=== PATIENT | female | born 1980 | race American Indian/Alaskan Native ===

== ENCOUNTER 2019-06-14 18:59 | Outpatient (CLI) | payer MEDICAID | END 2019-06-14 19:00 | disposition critical access hospital (66) | LOC: EMS 18:59 | PROVIDERS: ATTEND Surgery | DX: R25.2 Cramp and spasm (principal); R07.89 Other chest pain; F41.9 Anxiety disorder, unspecified | CPT/HCPCS: A0425; A0429 ==

== ENCOUNTER 2019-06-14 19:26 | Emergency (ER) | payer MEDICAID ==
[2019-06-14 19:59] LABS: BASOPHILS # (AUTO) 0.1 10^3/uL (0.0-0.1); EOSINOPHILS % (AUTO) 0.4 %; LYMPHOCYTES # (AUTO) 1.8 10^3/uL (1.5-3.5); MEAN CORPUSCULAR HGB CONC 31.4 g/dL (32.0-36.0); MEAN CORPUSCULAR VOLUME 89.1 fL (81.0-99.0); MEAN PLATELET VOLUME 8.3 fL (7.9-10.8); MONOCYTES # (AUTO) 0.9 10^3/uL (0.0-1.0); MONOCYTES % (AUTO) 8.9 %; NEUTROPHILS # (AUTO) 7.4 10^3/uL (1.5-6.6); NEUTROPHILS % (AUTO) 72.4 %; PLT - PLATELET COUNT 387 10^3/uL (130-450); RED BLOOD COUNT 3.93 10^6/uL (4.20-5.40); RED CELL DISTRIBUTION WIDTH 16.5 % (12.0-15.0); WHITE BLOOD COUNT 10.3 x10^3/uL (4.8-10.8)
[2019-06-14 20:12] LABS: ALBUMIN 3.8 g/dL (3.2-5.5); ALBUMIN/GLOBULIN RATIO 1.1 (1.0-2.2); BILIRUBIN,TOTAL 0.8 mg/dL (0.2-1.0); CALCIUM 8.5 mg/dL (8.5-10.3); CREATININE 0.8 mg/dL (0.4-1.0); TOTAL PROTEIN 7.3 g/dL (6.7-8.2)
--- NOTE | 2019-06-14 20:33 | ED Physician Documentation ---
History of Present Illness - Stated complaint Stated Complaint: CHEST WALL TENDERNESS, ANXIETY - Chief complaint Chief Complaint: General - History obtained from History obtained from: Patient - History of Present Illness Timing: Today (She was driving home from work, she started to hyperventilate in the top of her scalp felt tingly. Subsequently her face felt tingly and she developed carpal spasms. She had a similar episode last year and was diagnosed with panic attack. She has hydroxyzine for same but has not ever taken any. She feels back to normal now other than tiredness.) Review of Systems Constitutional: denies: Fever, Chills Nose: denies: Rhinorrhea / runny nose, Congestion GI: denies: Abdominal Pain, Nausea PD PAST MEDICAL HISTORY - Past Medical History Cardiovascular: None Respiratory: None Neuro: Headaches Endocrine/Autoimmune: None GI: None ORTHO NURSE: None : None HEENT: None Psych: None Musculoskeletal: None Derm: None - Present Medications Home Medications: Ambulatory Orders Medication Instructions Recorded Confirmed Ferrous Sulfate 325 mg PO DAILY #90 tablet 06/14/19 - Allergies Allergies/Adverse Reactions: Allergies Allergy/AdvReac Type Severity Reaction Status Date / Time No Known Drug Allergies Allergy Verified 06/14/19 19:42 - Social History Does the pt smoke?: Yes Smoking Status: Current some day smoker Does the pt drink ETOH?: Yes ETOH Use: Liquor Does the pt have substance abuse?: No - POLST Patient has POLST: No PD ED PE NORMAL - Vitals Vital signs reviewed: Yes - General General: Alert and oriented X 3, No acute distress - HEENT HEENT: PERRL, EOMI - Neck Neck: Supple, no meningeal sign, No bony TTP - Cardiac Cardiac: RRR, No murmur - Respiratory Respiratory: No respiratory distress, Clear bilaterally - Abdomen Abdomen: Non tender - Back Back: No CVA TTP, No spinal TTP - Derm Derm: Normal color, Warm and dry - Extremities Extremities: No edema, No calf tenderness / cord - Neuro Neuro: Alert and oriented X 3, Normal speech Results - Vitals Vitals: Vital Signs - 24 hr 06/14/19 06/14/19 19:42 20:02 Temperature 36.5 C Heart Rate 77 76 Respiratory 16 16 Rate Blood Pressure 124/78 131/87 H O2 Saturation 100 100 Oxygen O2 Source Room air - EKG (time done) 1932 Rate: Rate (enter#) (80) Rhythm: NSR [place]: Normal Intervals: Normal [place] QRS: Normal Ischemia: Normal ST segments Computer interpretation: Agree with computer - Labs Labs: Laboratory Tests 06/14/19 06/14/19 06/14/19 19:57 19:57 19:57 WBC 10.3 RBC 3.93 L Hgb 11.0 L Hct 35.0 L MCV 89.1 MCH 28.0 MCHC 31.4 L RDW 16.5 H Plt Count 387 MPV 8.3 Neut # (Auto) 7.4 H Lymph # (Auto) 1.8 [place] # (Auto) 0.9 Eos # (Auto) 0.0 Baso # (Auto) 0.1 Absolute Nucleated RBC 0.00 Nucleated RBC % 0.0 Sodium 138 Potassium 3.0 L Chloride 104 Carbon Dioxide 24 Anion Gap 10.0 BUN 11 Creatinine 0.8 Estimated GFR (MDRD) 81 L Glucose 99 Calcium 8.5 Total Bilirubin 0.8 AST 34 ALT 32 Alkaline Phosphatase 48 Troponin I High Sens 3.6 Total Protein 7.3 Albumin 3.8 Globulin 3.5 Albumin/Globulin Ratio 1.1 Lipase 35 PD MEDICAL DECISION MAKING - ED course ED course: This is a 38-year-old woman who presents with resolved episode very consistent with a panic attack. Objective testing here is negative except for anemia of unknown chronicity for which she is advised to follow-up and given an iron supplement, she also has hypokalemia which is likely reactive to the nights episode and requires no specific treatment. Departure - Departure Disposition: 01 Home, Self Care Clinical Impression: Panic attack Anemia Qualifiers: Anemia type: unspecified type Qualified Code(s): D64.9 - Anemia, unspecified Condition: Good Record reviewed to determine appropriate education?: Yes Instructions: ED Panic Attack Prescriptions: Ferrous Sulfate 325 mg PO DAILY #90 tablet Comments: You are somewhat anemic. Follow-up with your doctor for this, next available appointment. Return for new or worsening symptoms. If a similar episode happens again you can try the hydroxyzine you have for it at home. You can also use this for sleep as needed.
[2019-06-14 20:38] VITALS: BP 120/76
== END 2019-06-14 20:40 | disposition home or self-care (01) ==
LOC: ED 19:26
DX: F41.0 Panic disorder [episodic paroxysmal anxiety] (principal); E87.6 Hypokalemia; D64.9 Anemia, unspecified; F17.200 Nicotine dependence, unspecified, uncomplicated
CPT/HCPCS: 36415; 80053; 83690; 84484; 85025; 93005; 99283

== ENCOUNTER 2019-07-25 16:59 | Emergency (ER) | payer MEDICAID ==
[2019-07-25 17:16] VITALS: BP 148/106
--- NOTE | 2019-07-25 17:26 | ED Physician Documentation ---
History of Present Illness - Stated complaint Stated Complaint: ANXIETY/PANIC ATTACK - Chief complaint Chief Complaint: MHE - History obtained from History obtained from: Patient, Friend - History of Present Illness Timing: Today - Additonal information Additional information: This is a 38-year-old woman who presents with her boyfriend complains that she had a panic attack earlier today felt like she was going to faint when she was standing up. She has had this happen in the past and was prescribed hydroxyzine which she took 2 of at 230 this afternoon and it was not getting any better. Her throat was very tingly and she was tingly all over and she felt like her heart was racing. Her face got really hot. She had to call her boyfriend to get off work early to bring her here and she left work early as well. She was so anxious that they had to loin puller the road several times on the way here. She was nauseous and had an episode of vomiting. No diarrhea. She is been treated by the [facility] to get the hydroxyzine but does not have a local primary care provider and denies taking other medications in the past for anxiety. She was seen here in late May and given a cardiac work-up which was normal. She was found to be anemic and started taking iron tablets which she said she is still taking. 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 She denies . No recent illness. 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 : None HEENT: None Psych: None Musculoskeletal: None Derm: None - Present Medications Home Medications: Ambulatory Orders Medication Instructions Recorded Confirmed Ferrous Sulfate 325 mg PO DAILY #90 tablet 06/14/19 - Allergies Allergies/Adverse Reactions: Allergies Allergy/AdvReac Type Severity Reaction Status Date / Time No Known Drug Allergies Allergy Verified 07/25/19 17:16 - Social History Does the pt smoke?: Yes Smoking Status: Current some day smoker Does the pt drink ETOH?: Yes Does the pt have substance abuse?: No - POLST Patient has POLST: No PD ED PE NORMAL - Vitals Vital signs reviewed: Yes - General General: Alert and oriented X 3, No acute distress, Well developed/nourished - HEENT HEENT: Atraumatic, PERRL, EOMI, Moist mucous membranes, Pharynx benign - Neck Neck: Supple, no meningeal sign, No adenopathy, Thyroid normal - Cardiac Cardiac: RRR, No murmur, Strong equal pulses - Respiratory Respiratory: No respiratory distress, Clear bilaterally - Abdomen Abdomen: Normal bowel sounds, Soft - Derm Derm: Normal color, Warm and dry, No rash - Extremities Extremities: No deformity, No edema - Neuro Neuro: Alert and oriented X 3, thread weaver 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 to help her sleep tonight. Recommended outpatient follow-up and cognitive behavioral therapy. They plan to follow-up with the [facility]. She requested a note for work. Departure - Departure Disposition: Home, Self Care Clinical Impression: Anxiety attack Condition: Good Instructions: ED Panic Attack Follow-Up: [facility] [Provider Group] Comments: Follow-up with a primary care provider for further management of your anxiety. Cognitive behavioral therapy is probably the best treatment modality for anxiety and can be arranged through a counseling office.
[2019-07-25] MEDS ORDERED: LORazepam 1 MG TABLET PO STA (17:42)
== END 2019-07-25 17:57 | disposition home or self-care (01) ==
LOC: ED 16:59
DX: F41.0 Panic disorder [episodic paroxysmal anxiety] (principal); F17.200 Nicotine dependence, unspecified, uncomplicated
CPT/HCPCS: 99282; 99284; J8499

== ENCOUNTER 2019-09-13 18:03 | Outpatient (CLI) | payer MEDICAID | END 2019-09-13 18:04 | disposition critical access hospital (66) | LOC: EMS 18:03 | PROVIDERS: ATTEND Surgery | DX: R11.2 Nausea with vomiting, unspecified (principal); R51 Headache; R42 Dizziness and giddiness; R00.0 Tachycardia, unspecified | CPT/HCPCS: A0425; A0427; A0999 ==

== ENCOUNTER 2019-09-13 18:29 | Emergency (ER) | payer MEDICAID ==
[2019-09-13] MEDS ORDERED: SODIUM CHLORIDE 0.9% 1,000 ML IV ONE ×4 (18:40→20:18)
[2019-09-13] MEDS ORDERED: PROMETHAZINE INJ 25 MG in SODIUM CHLORIDE 0.9% 50 ML IV STA (18:41)
[2019-09-13] MEDS ORDERED: LORazepam 2 MG/ML VIAL IVP STA ×2 (18:41→22:25)
[2019-09-13 18:54] LABS: BASOPHILS # (AUTO) 0.1 10^3/uL (0.0-0.1); BASOPHILS % (AUTO) 0.9 %; EOSINOPHILS # (AUTO) 0.1 10^3/uL (0.0-0.7); EOSINOPHILS % (AUTO) 0.7 %; HGB - HEMOGLOBIN 12.7 g/dL (12.0-16.0); LYMPHOCYTES % (AUTO) 25.1 %; MEAN CORPUSCULAR HGB CONC 32.9 g/dL (32.0-36.0); MEAN CORPUSCULAR VOLUME 91.3 fL (81.0-99.0); MEAN PLATELET VOLUME 8.3 fL (7.9-10.8); MONOCYTES # (AUTO) 0.7 10^3/uL (0.0-1.0); MONOCYTES % (AUTO) 5.6 %; NEUTROPHILS % (AUTO) 67.4 %; PLT - PLATELET COUNT 408 10^3/uL (130-450); RED BLOOD COUNT 4.23 10^6/uL (4.20-5.40); RED CELL DISTRIBUTION WIDTH 14.8 % (12.0-15.0); WHITE BLOOD COUNT 11.9 x10^3/uL (4.8-10.8)
[2019-09-13 19:05] LABS: RAPID STREP SCREEN Negative (Negative)
--- NOTE | 2019-09-13 19:06 | ED Physician Documentation ---
History of Present Illness - Stated complaint Stated Complaint: Syncope - Chief complaint Chief Complaint: Neuro - History obtained from History obtained from: Patient, EMS - History of Present Illness Pain level max: 3 Pain level now: 2 - Additonal information Additional information: 38-year-old female presents to the emergency department stating that she has been feeling unwell for the past 2 to 3 days. She states she has had intermittent nausea and vomiting. Subjective fevers. Dry cough. No abdominal pain. She states that tonight she had fallen asleep and woke up on the floor. She does not remember getting out of bed. EMS arrived and found her to be tachycardic, sinus tachycardia, appears to be improving with IV fluids. She states that her anxiety has been out of control recently as well. She states she feels like she is having panic attacks. Review of Systems Ten Systems: 10 systems reviewed and negative Constitutional: denies: Fever, Chills Nose: denies: Rhinorrhea / runny nose Throat: denies: Sore throat Cardiac: denies: Chest pain / pressure, Palpitations Respiratory: denies: Cough GI: reports: Nausea, Vomiting. 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 : None HEENT: None Psych: Anxiety Musculoskeletal: None Derm: None - Present Medications Home Medications: Ambulatory Orders Medication Instructions Recorded Confirmed Ferrous Sulfate 325 mg PO DAILY #90 tablet 06/14/19 - Allergies Allergies/Adverse Reactions: Allergies Allergy/AdvReac Type Severity Reaction Status Date / Time No Known Drug Allergies Allergy Verified 09/13/19 18:36 - Living Situation Living Situation: reports: With family Living Arrangement: reports: At home - Social History Does the pt smoke?: Yes Smoking Status: Current every day smoker Does the pt drink ETOH?: Yes Does the pt have substance abuse?: No - Family History Family history: reports: Non contributory - POLST Patient has POLST: No PD ED PE NORMAL - Vitals Vital signs reviewed: Yes - General General: Alert and oriented X 3, No acute distress, Well developed/nourished - HEENT HEENT: PERRL, Other (Dry lips.) - Neck Neck: Supple, no meningeal sign - Cardiac Cardiac: Strong equal pulses, Other (Tachycardic) - Respiratory Respiratory: No respiratory distress, Clear bilaterally - Abdomen Abdomen: Soft, Non tender, Non distended - Derm Derm: Warm and dry - Extremities Extremities: No edema, No calf tenderness / cord - Neuro Neuro: Alert and oriented X 3, 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, No motor deficit, No sensory deficit, Normal speech - Psych Psych: Normal mood, Normal affect Results - Vitals Vitals: Vital Signs - 24 hr 09/13/19 09/13/19 09/13/19 18:29 18:38 20:26 Temperature 37.2 C Heart Rate 135 H 121 H Respiratory 16 22 Rate Blood Pressure 152/90 H 123/82 H O2 Saturation 98 96 09/13/19 09/13/19 09/13/19 20:30 20:43 21:15 Temperature Heart Rate 114 H 114 H 128 H Respiratory 23 22 20 Rate Blood Pressure 144/88 H 144/88 H 130/86 H O2 Saturation 95 95 95 09/13/19 21:45 Temperature Heart Rate 119 H Respiratory 18 Rate Blood Pressure 133/87 H O2 Saturation 97 Oxygen O2 Source Room air - EKG (time done) 1833 Rate: Rate (enter#) (140) Rhythm: Sinus tachycardia [place]: Normal Intervals: Normal IN QRS: Normal Ischemia: Normal ST segments - Labs Labs: Laboratory Tests 09/13/19 09/13/19 09/13/19 18:40 18:40 18:50 WBC 11.9 H RBC 4.23 Hgb 12.7 Hct 38.6 MCV 91.3 MCH 30.0 MCHC 32.9 RDW 14.8 Plt Count 408 MPV 8.3 Neut # (Auto) 8.0 H Lymph # (Auto) 3.0 [place] # (Auto) 0.7 Eos # (Auto) 0.1 Baso # (Auto) 0.1 Absolute Nucleated RBC 0.00 Nucleated RBC % 0.0 Sodium Potassium Chloride Carbon Dioxide Anion Gap BUN Creatinine Estimated GFR (MDRD) Glucose Calcium Total Bilirubin AST ALT Alkaline Phosphatase Total Protein Albumin Globulin Albumin/Globulin Ratio Lipase Urine Color YELLOW Urine Clarity CLEAR Urine pH 5.5 Ur Specific [place] >=1.030 H Urine Protein TRACE Urine Glucose (UA) NEGATIVE Urine Ketones 40 H Urine Occult Blood SMALL H Urine Nitrite NEGATIVE Urine Bilirubin NEGATIVE Urine Urobilinogen 0.2 (NORMAL) Ur Leukocyte Esterase NEGATIVE Urine RBC 0-5 Urine WBC 0-3 Ur Squamous Epith Cells FEW Squamous Urine Bacteria None Seen Ur Microscopic Review INDICATED Urine Culture Comments NOT INDICATED Urine HCG, Qual NEGATIVE Urine Opiates Screen NEGATIVE Ur Oxycodone Screen NEGATIVE Urine Methadone Screen NEGATIVE Ur Propoxyphene Screen NEGATIVE Ur Barbiturates Screen NEGATIVE Ur Tricyclics Screen NEGATIVE Ur Phencyclidine Scrn NEGATIVE Ur Amphetamine Screen NEGATIVE U Methamphetamines Scrn NEGATIVE U Benzodiazepines Scrn POSITIVE H Urine Cocaine Screen NEGATIVE U Cannabinoids Screen NEGATIVE Group A Strep Rapid Negative 09/13/19 18:50 WBC RBC Hgb Hct MCV MCH MCHC RDW Plt Count MPV Neut # (Auto) Lymph # (Auto) [place] # (Auto) Eos # (Auto) Baso # (Auto) Absolute Nucleated RBC Nucleated RBC % Sodium 143 Potassium 3.3 L Chloride 103 Carbon Dioxide 17 L Anion Gap 23.0 H BUN 13 Creatinine 0.7 Estimated GFR (MDRD) 95 Glucose 82 Calcium 8.9 Total Bilirubin 0.6 AST 34 ALT 38 Alkaline Phosphatase 65 Total Protein 7.7 Albumin 3.9 Globulin 3.8 Albumin/Globulin Ratio 1.0 Lipase 43 Urine Color Urine Clarity Urine pH Ur Specific [place] Urine Protein Urine Glucose (UA) Urine Ketones Urine Occult Blood Urine Nitrite Urine Bilirubin Urine Urobilinogen Ur Leukocyte Esterase Urine RBC Urine WBC Ur Squamous Epith Cells Urine Bacteria Ur Microscopic Review Urine Culture Comments Urine HCG, Qual Urine Opiates Screen Ur Oxycodone Screen Urine Methadone Screen Ur Propoxyphene Screen Ur Barbiturates Screen Ur Tricyclics Screen Ur Phencyclidine Scrn Ur Amphetamine Screen U Methamphetamines Scrn U Benzodiazepines Scrn Urine Cocaine Screen U Cannabinoids Screen Group A Strep Rapid PD MEDICAL DECISION MAKING - ED course Complexity details: reviewed results, re-evaluated patient, considered differential, d/w patient, d/w family ED course: Patient feels much better after IV fluids. She feels better after Phenergan as well. Tolerating p.o. without difficulty. Had persistent tachycardia, therefore CT pulmonary angiogram was undertaken to exclude pulmonary embolus as a potential cause of this. As she is improved, I suspect that if this is ne gative she can go home and follow-up with her doctor regarding her tachycardia. Patient will be signed out to the oncoming emergency department physician. This document was made in part using voice recognition software. While efforts are made to proofread this document, sound alike and grammatical errors may occur. Patient also states that she drinks fairly heavily and she may be well. We will try another dose of Ativan as well for the tachycardia. Departure - Departure Clinical Impression: Tachycardia Vomiting Qualifiers: Vomiting type: unspecified Vomiting Intractability: non-intractable Nausea presence: without nausea Qualified Code(s): R11.11 - Vomiting without nausea Condition: Stable
[2019-09-13 19:07] LABS: ALBUMIN 3.9 g/dL (3.2-5.5); BILIRUBIN,TOTAL 0.6 mg/dL (0.2-1.0); CALCIUM 8.9 mg/dL (8.5-10.3); CREATININE 0.7 mg/dL (0.4-1.0); TOTAL PROTEIN 7.7 g/dL (6.7-8.2)
[2019-09-13 20:49] LABS: MUDS CUTOFF CONCENTRATIONS CUTOFF CONC BELOW:
[2019-09-13 20:54] LABS: BILIRUBIN,URINE NEGATIVE (NEGATIVE); GLUCOSE, URINE (UA) NEGATIVE (NEGATIVE); KETONES,URINE (UA) 40 mg/dL (NEGATIVE); LEUKOCYTE ESTERASE, URINE NEGATIVE (NEGATIVE); NITRITE,URINE NEGATIVE (NEGATIVE); OCCULT BLOOD,URINE SMALL (NEGATIVE); PH,URINE 5.5 PH (5.0-7.5); PROTEIN,URINE TRACE mg/dL (NEGATIVE); UROBILINOGEN,URINE 0.2 (NORMAL) E.U./dL (NORMAL)
[2019-09-13 20:55] LABS: CLARITY,URINE CLEAR (CLEAR)
[2019-09-13 20:58] LABS: HCG UR QUAL NEGATIVE
[2019-09-13 21:04] LABS: AMPHETAMINE SCREEN,URINE NEGATIVE (NEGATIVE); BENZODIAZEPINES SCREEN, URINE POSITIVE (NEGATIVE); COCAINE SCREEN URINE NEGATIVE (NEGATIVE); METHADONE SCREEN, URINE NEGATIVE (NEGATIVE); METHAMPHETAMINES SCREEN, URINE NEGATIVE (NEGATIVE); OPIATE SCREEN, URINE NEGATIVE (NEGATIVE); OXYCODONE SCREEN, URINE NEGATIVE (NEGATIVE); PROPOXYPHENE SCREEN, URINE NEGATIVE (NEGATIVE); TRICYCLIC ANTIDEPRESSANT,URINE NEGATIVE (NEGATIVE)
[2019-09-13 21:08] LABS: BACTERIA,URINE None Seen /HPF (None Seen); RBC,URINE 0-5 /HPF (0-5); SQUAMOUS EPITHELIAL CELL,UR FEW Squamous (<= Few)
[2019-09-13] MEDS ORDERED: IOVERSOL 320 100 ML VIAL IVP ONE ×2 (21:22→22:14)
--- NOTE | 2019-09-13 22:32 | CT Report ---
Reason: tachycardia, cough Procedure Date: 09/13/2019 Accession Number: [id number] / [id number] Procedure: CT - ANGIO CHEST W/WO CPT Code: Final Report FULL RESULT: EXAM: CT ANGIOGRAM CHEST EXAM DATE: 09/13/2019 10:15 PM. CLINICAL HISTORY: Tachycardia, cough. COMPARISON: None. TECHNIQUE: Routine helical imaging was performed through the chest in the pulmonary arterial phase. IV Contrast: OPTI 320 80ML. Reconstructions: Coronal 3-D MIP reconstructions.Sagittal and coronal. In accordance with CT protocol optimization, one or more of the following dose reduction techniques were utilized for this exam: automated exposure control, adjustment of mA and/or KV based on patient size, or use of iterative reconstructive technique. FINDINGS: Pulmonary Arteries: Diagnostic quality: Adequate through the segmental arteries. No evidence for acute or chronic pulmonary emboli. RV/LV is within normal limits. There is no interventricular septal bowing. There is no reflux of contrast material in the IVC. Lungs/Pleura: There are subtle groundglass infiltrative changes in the mid and lower lung zones. No airspace infiltration or no pleural effusions. Mediastinum: Normal. No cardiac enlargement or adenopathy. Thoracic Aorta: Unremarkable. Upper Abdomen: That infiltration of liver. Prior cholecystectomy. Other: None. IMPRESSION: 1. No evidence for pulmonary emboli. 2. Subtle groundglass infiltrative changes in the lower lung zones. RADIA
--- NOTE | 2019-09-13 23:31 | ED Physician Documentation ---
History of Present Illness - Stated complaint Stated Complaint: Syncope - Chief complaint Chief Complaint: Neuro - History obtained from History obtained from: Other (This patient was a sign out to me by Dr. goldberg. 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 : None HEENT: None Psych: Anxiety Musculoskeletal: None Derm: None - Present Medications Home Medications: Ambulatory Orders Medication Instructions Recorded Confirmed Ferrous Sulfate 325 mg PO DAILY #90 tablet 06/14/19 - Allergies Allergies/Adverse Reactions: Allergies Allergy/AdvReac Type Severity Reaction Status Date / Time No Known Drug Allergies Allergy Verified 09/13/19 18:36 - Social History Does the pt smoke?: Yes Smoking Status: Current every day smoker Does the pt drink ETOH?: Yes Does the pt have substance abuse?: No - POLST Patient has POLST: No Results - Vitals Vitals: Vital Signs - 24 hr 09/13/19 09/13/19 09/13/19 18:29 18:38 20:26 Temperature 37.2 C Heart Rate 135 H 121 H Respiratory 16 22 Rate Blood Pressure 152/90 H 123/82 H O2 Saturation 98 96 09/13/19 09/13/19 09/13/19 20:30 20:43 21:15 Temperature Heart Rate 114 H 114 H 128 H Respiratory 23 22 20 Rate Blood Pressure 144/88 H 144/88 H 130/86 H O2 Saturation 95 95 95 09/13/19 09/13/19 21:45 22:36 Temperature Heart Rate 119 H 109 H Respiratory 18 20 Rate Blood Pressure 133/87 H 143/97 H O2 Saturation 97 96 Oxygen O2 Source Room air - Labs Labs: Laboratory Tests 09/13/19 09/13/19 09/13/19 18:40 18:40 18:50 WBC 11.9 H RBC 4.23 Hgb 12.7 Hct 38.6 MCV 91.3 MCH 30.0 MCHC 32.9 RDW 14.8 Plt Count 408 MPV 8.3 Neut # (Auto) 8.0 H Lymph # (Auto) 3.0 [place] # (Auto) 0.7 Eos # (Auto) 0.1 Baso # (Auto) 0.1 Absolute Nucleated RBC 0.00 Nucleated RBC % 0.0 Sodium Potassium Chloride Carbon Dioxide Anion Gap BUN Creatinine Estimated GFR (MDRD) Glucose Calcium Total Bilirubin AST ALT Alkaline Phosphatase Total Protein Albumin Globulin Albumin/Globulin Ratio Lipase Urine Color YELLOW Urine Clarity CLEAR Urine pH 5.5 Ur Specific [place] >=1.030 H Urine Protein TRACE Urine Glucose (UA) NEGATIVE Urine Ketones 40 H Urine Occult Blood SMALL H Urine Nitrite NEGATIVE Urine Bilirubin NEGATIVE Urine Urobilinogen 0.2 (NORMAL) Ur Leukocyte Esterase NEGATIVE Urine RBC 0-5 Urine WBC 0-3 Ur Squamous Epith Cells FEW Squamous Urine Bacteria None Seen Ur Microscopic Review INDICATED Urine Culture Comments NOT INDICATED Urine HCG, Qual NEGATIVE Urine Opiates Screen NEGATIVE Ur Oxycodone Screen NEGATIVE Urine Methadone Screen NEGATIVE Ur Propoxyphene Screen NEGATIVE Ur Barbiturates Screen NEGATIVE Ur Tricyclics Screen NEGATIVE Ur Phencyclidine Scrn NEGATIVE Ur Amphetamine Screen NEGATIVE U Methamphetamines Scrn NEGATIVE U Benzodiazepines Scrn POSITIVE H Urine Cocaine Screen NEGATIVE U Cannabinoids Screen NEGATIVE Ethyl Alcohol Group A Strep Rapid Negative 09/13/19 09/13/19 18:50 18:50 WBC RBC Hgb Hct MCV MCH MCHC RDW Plt Count MPV Neut # (Auto) Lymph # (Auto) [place] # (Auto) Eos # (Auto) Baso # (Auto) Absolute Nucleated RBC Nucleated RBC % Sodium 143 Potassium 3.3 L Chloride 103 Carbon Dioxide 17 L Anion Gap 23.0 H BUN 13 Creatinine 0.7 Estimated GFR (MDRD) 95 Glucose 82 Calcium 8.9 Total Bilirubin 0.6 AST 34 ALT 38 Alkaline Phosphatase 65 Total Protein 7.7 Albumin 3.9 Globulin 3.8 Albumin/Globulin Ratio 1.0 Lipase 43 Urine Color Urine Clarity Urine pH Ur Specific [place] Urine Protein Urine Glucose (UA) Urine Ketones Urine Occult Blood Urine Nitrite Urine Bilirubin Urine Urobilinogen Ur Leukocyte Esterase Urine RBC Urine WBC Ur Squamous Epith Cells Urine Bacteria Ur Microscopic Review Urine Culture Comments Urine HCG, Qual Urine Opiates Screen Ur Oxycodone Screen Urine Methadone Screen Ur Propoxyphene Screen Ur Barbiturates Screen Ur Tricyclics Screen Ur Phencyclidine Scrn Ur Amphetamine Screen U Methamphetamines Scrn U Benzodiazepines Scrn Urine Cocaine Screen U Cannabinoids Screen Ethyl Alcohol 121.1 Group A Strep Rapid Departure - Departure Disposition: 01 Home, Self Care Clinical Impression: Tachycardia Vomiting Qualifiers: Vomiting type: unspecified Vomiting Intractability: non-intractable Nausea presence: without nausea Qualified Code(s): R11.11 - Vomiting without nausea Condition: Stable Follow-Up: YOUR,DOCTOR [Other]
[2019-09-13 23:44] VITALS: BP 144/88
== END 2019-09-13 23:44 | disposition home or self-care (01) ==
LOC: EDUNIT# → ED 18:29
DX: R00.0 Tachycardia, unspecified (principal); R11.2 Nausea with vomiting, unspecified; R55 Syncope and collapse; F41.9 Anxiety disorder, unspecified; F17.200 Nicotine dependence, unspecified, uncomplicated
CPT/HCPCS: 36415; 71275; 80053; 80306; 80320; 81001; 81025; 83690; 85025; 87070; 87430; 93005; 96365; 96366; 96375; 96376; 99284; J2060; J7040; Q9967; 81003; 87086

== ENCOUNTER 2020-03-09 23:19 | Outpatient (CLI) | payer SELFPAY | END 2020-03-09 23:59 | disposition critical access hospital (66) | LOC: EMS 23:19 | PROVIDERS: ATTEND Surgery | DX: R00.0 Tachycardia, unspecified (principal); R11.10 Vomiting, unspecified | CPT/HCPCS: A0425; A0427 ==

== ENCOUNTER 2020-03-09 23:48 | Emergency (ER) | payer SELFPAY ==
--- NOTE | 2020-03-09 23:57 | ED Physician Documentation ---
PD HPI CHEST PAIN - Stated complaint Stated Complaint: RAPID HR - Chief complaint Chief Complaint: Cardiac - History obtained from History obtained from: Patient - History of Present Illness Timing - onset: Today Timing - onset during: Light activity (She noted an onset this evening of a heart rate feeling fast. She had been nauseated through the day and had not had much water. She states she had been drinking alcohol heavily the last 4 days in particular. Prior to that it was just once or twice a week. She had had her last drink 6 hrs ago) Timing - duration: Hours Timing - details: Gradual onset, Still present Quality: Tightness, Aching Location: Substernal Radiation: No: Jaw, Neck Improved by: No: Rest Associated symptoms: Nausea, Palpitations (feeling heart rate is fast). No: Shortness of air Similar symptoms before: Has not had sx before Review of Systems Constitutional: denies: Fever, Chills Nose: denies: Rhinorrhea / runny nose, Congestion Throat: denies: Sore throat Cardiac: reports: Palpitations. denies: Pedal edema, Calf pain Respiratory: reports: Dyspnea. denies: Cough, Wheezing GI: reports: Nausea, Vomiting (this evening). denies: Diarrhea, Hematemesis Musculoskeletal: denies: Neck pain, Back pain Neurologic: reports: Generalized weakness. 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 : None HEENT: None Psych: Anxiety Musculoskeletal: None Derm: None - Present Medications Home Medications: Ambulatory Orders Medication Instructions Recorded Confirmed Ferrous Sulfate 325 mg PO DAILY #90 tablet 06/14/19 Famotidine 20 mg PO DAILY #20 tablet 03/10/20 LORazepam [Ativan] 1 mg PO Q6H PRN #25 tablet 03/10/20 Ondansetron Odt [Zofran] 4 mg TL Q6H PRN #20 tablet 03/10/20 - Allergies Allergies/Adverse Reactions: Allergies Allergy/AdvReac Type Severity Reaction Status Date / Time No Known Drug Allergies Allergy Verified 03/09/20 23:55 - Social History Does the pt smoke?: Yes Smoking Status: Current every day smoker Does the pt drink ETOH?: Yes Does the pt have substance abuse?: No - POLST Patient has POLST: No PD ED PE NORMAL - Vitals Vital signs reviewed: Yes - General General: Alert and oriented X 3, No acute distress, Well developed/nourished - HEENT HEENT: Pharynx benign - Neck Neck: Supple, no meningeal sign, No adenopathy - Cardiac Cardiac: No murmur. No: RRR (regular but tachycardic at 120. ) - Respiratory Respiratory: Clear bilaterally - Abdomen Abdomen: Normal bowel sounds, Soft, Non distended, No organomegaly, Other (minimal tender without guarding in epigastric area. ) - Derm Derm: Normal color, Warm and dry - Extremities Extremities: No tenderness to palpate, Normal ROM s pain, No edema, No calf tenderness / cord - Neuro Neuro: Alert and oriented X 3, No motor deficit, Normal speech Results - Vitals Vitals: Vital Signs - 24 hr 03/09/20 03/10/20 23:55 03:28 Temperature 37.0 C Heart Rate 120 H 106 H Respiratory 18 14 Rate Blood Pressure 141/88 H 101/63 O2 Saturation 99 96 Oxygen O2 Source Room air - Labs Labs: Laboratory Tests 03/10/20 03/10/20 03/10/20 00:25 00:25 00:25 WBC 8.2 RBC 4.52 Hgb 13.1 Hct 39.4 MCV 87.2 MCH 29.0 MCHC 33.2 RDW 14.2 Plt Count 342 MPV 8.2 Neut # (Auto) 5.4 Lymph # (Auto) 1.9 [place] # (Auto) 0.7 Eos # (Auto) 0.0 Baso # (Auto) 0.1 Absolute Nucleated RBC 0.00 Nucleated RBC % 0.0 Sodium 138 Potassium 3.4 L Chloride 100 L Carbon Dioxide 19 L Anion Gap 19.0 H BUN 15 Creatinine 0.7 Estimated GFR (MDRD) 94 Glucose 93 Calcium 8.4 L Magnesium 1.9 Total Bilirubin 0.6 AST 51 H ALT 48 Alkaline Phosphatase 58 Total Protein 8.2 Albumin 4.0 Globulin 4.2 Albumin/Globulin Ratio 1.0 Lipase 63 H TSH 0.58 Urine Color Urine Clarity Urine pH Ur Specific [place] Urine Protein Urine Glucose (UA) Urine Ketones Urine Occult Blood Urine Nitrite Urine Bilirubin Urine Urobilinogen Ur Leukocyte Esterase Urine RBC Urine WBC Ur Squamous Epith Cells Urine Bacteria Urine Mucus Ur Microscopic Review Urine Culture Comments Urine HCG, Qual Salicylates < 6.0 Urine Opiates Screen Ur Oxycodone Screen Urine Methadone Screen Ur Propoxyphene Screen Acetaminophen < 10 L Ur Barbiturates Screen Ur Tricyclics Screen Ur Phencyclidine Scrn Ur Amphetamine Screen U Methamphetamines Scrn U Benzodiazepines Scrn Urine Cocaine Screen U Cannabinoids Screen Ethyl Alcohol 251.4 Serum Ketones NEGATIVE 03/10/20 00:36 WBC RBC Hgb Hct MCV MCH MCHC RDW Plt Count MPV Neut # (Auto) Lymph # (Auto) [place] # (Auto) Eos # (Auto) Baso # (Auto) Absolute Nucleated RBC Nucleated RBC % Sodium Potassium Chloride Carbon Dioxide Anion Gap BUN Creatinine Estimated GFR (MDRD) Glucose Calcium Magnesium Total Bilirubin AST ALT Alkaline Phosphatase Total Protein Albumin Globulin Albumin/Globulin Ratio Lipase TSH Urine Color YELLOW Urine Clarity CLEAR Urine pH 6.0 Ur Specific [place] 1.020 Urine Protein NEGATIVE Urine Glucose (UA) NEGATIVE Urine Ketones TRACE Urine Occult Blood SMALL H Urine Nitrite NEGATIVE Urine Bilirubin NEGATIVE Urine Urobilinogen 0.2 (NORMAL) Ur Leukocyte Esterase SMALL H Urine RBC 6-10 H Urine WBC 6-10 H Ur Squamous Epith Cells MOD Squamous H Urine Bacteria Rare Urine Mucus Few Strands Ur Microscopic Review INDICATED Urine Culture Comments NOT INDICATED Urine HCG, Qual NEGATIVE Salicylates Urine Opiates Screen NEGATIVE Ur Oxycodone Screen NEGATIVE Urine Methadone Screen NEGATIVE Ur Propoxyphene Screen NEGATIVE Acetaminophen Ur Barbiturates Screen NEGATIVE Ur Tricyclics Screen NEGATIVE Ur Phencyclidine Scrn NEGATIVE Ur Amphetamine Screen NEGATIVE U Methamphetamines Scrn NEGATIVE U Benzodiazepines Scrn NEGATIVE Urine Cocaine Screen NEGATIVE U Cannabinoids Screen NEGATIVE Ethyl Alcohol Serum Ketones PD MEDICAL DECISION MAKING - ED course Complexity details: re-evaluated patient (She is feeling improved after IV fluids and some lorazepam and famotidine. Zofran for nausea. She is still mildly tachycardic. Her labs are normal except for some slightly low potassium.), considered differential (I think she is largely dehydrated and low nutrition though there may be some element of mild withdrawal impending. There is an anxiety component as well. Will check labs and give IV fluids and medicines), d/w patient ED course: She is feeling improved. She states she will stop drinking alcohol and had not been regular for long. I will prescribe some lorazepam to help with anxiety and withdrawal. Ondansetron for nausea and famotidine for presumed mild gastritis related to the recent binge. She declines need for detox center or such Departure - Departure Disposition: 01 Home, Self Care Clinical Impression: Dehydration Alcohol intoxication Qualifiers: Complication of substance-induced condition: uncomplicated Qualified Code(s): F10.920 - Alcohol use, unspecified with intoxication, uncomplicated Gastritis Qualifiers: Gastritis type: alcoholic Chronicity: acute Gastritis bleeding: without bleeding Qualified Code(s): K29.20 - Alcoholic gastritis without bleeding Condition: Stable Record reviewed to determine appropriate education?: Yes Instructions: ED Alcohol Intoxication, ED Dehydration Prescriptions: LORazepam [Ativan] 1 mg PO Q6H PRN #25 tablet PRN Reason: Alcohol Withdrawal Famotidine 20 mg PO DAILY #20 tablet Ondansetron Odt [Zofran] 4 mg TL Q6H PRN #20 tablet PRN Reason: Nausea / Vomiting Comments: I presume your fast heart rate is a combination of effects of alcohol, dehydration and less nutrition over the last several days, perhaps some anxiety component. Nausea and vomiting is likely related to irritation of the stomach from alcohol. Stay well-hydrated with fluids. No alcohol. [place] foods initially and progress as tolerated. Ondansetron if needed for nausea. Lorazepam if needed for shakiness or withdrawal type symptoms. Try to decrease the amount and frequency of these over several days to week. Famotidine acid reducing medicine daily for a couple of weeks. I would anticipate improvement over the next several days to week.
[2020-03-10] MEDS ORDERED: FAMOTIDINE 20 MG/2 ML SYRINGE IVP STA (00:12)
[2020-03-10] MEDS ORDERED: LORazepam 2 MG/ML VIAL IVP STA ×2 (00:12→02:50)
[2020-03-10] MEDS ORDERED: ONDANSETRON 4 MG/2 ML VIAL IVP STA (00:12)
[2020-03-10] MEDS ORDERED: SODIUM CHLORIDE 0.9% 1,000 ML IV STA ×2 (00:12→01:24)
[2020-03-10 00:31] LABS: BASOPHILS # (AUTO) 0.1 10^3/uL (0.0-0.1); BASOPHILS % (AUTO) 1.2 %; EOSINOPHILS % (AUTO) 0.4 %; HGB - HEMOGLOBIN 13.1 g/dL (12.0-16.0); LYMPHOCYTES # (AUTO) 1.9 10^3/uL (1.5-3.5); LYMPHOCYTES % (AUTO) 23.7 %; MEAN CORPUSCULAR HGB CONC 33.2 g/dL (32.0-36.0); MEAN CORPUSCULAR VOLUME 87.2 fL (81.0-99.0); MEAN PLATELET VOLUME 8.2 fL (7.9-10.8); MONOCYTES # (AUTO) 0.7 10^3/uL (0.0-1.0); NEUTROPHILS # (AUTO) 5.4 10^3/uL (1.5-6.6); NEUTROPHILS % (AUTO) 66.3 %; PLT - PLATELET COUNT 342 10^3/uL (130-450); RED BLOOD COUNT 4.52 10^6/uL (4.20-5.40); RED CELL DISTRIBUTION WIDTH 14.2 % (12.0-15.0); WHITE BLOOD COUNT 8.2 x10^3/uL (4.8-10.8)
[2020-03-10 00:35] LABS: KETONES, SERUM (ACETEST) NEGATIVE (NEGATIVE)
[2020-03-10 00:46] LABS: ACETAMINOPHEN < 10 ug/mL (10-30); ALKALINE PHOSPHATASE 58 IU/L (42-121); ALT ALANINE AMINOTRANSFERASE 48 IU/L (10-60); AST ASPARTATE AMINOTRANSFERASE 51 IU/L (10-42); BILIRUBIN,TOTAL 0.6 mg/dL (0.2-1.0); BUN - BLOOD UREA NITROGEN 15 mg/dL (6-20); CALCIUM 8.4 mg/dL (8.5-10.3); CARBON DIOXIDE - CO2 19 mmol/L (21-32); CHLORIDE 100 mmol/L (101-111); CREATININE 0.7 mg/dL (0.4-1.0); GLUCOSE 93 mg/dL (70-100); LIPASE 63 U/L (22-51); MAGNESIUM 1.9 mg/dL (1.7-2.8); SALICYLATE < 6.0 mg/dL; SODIUM 138 mmol/L (135-145); TOTAL PROTEIN 8.2 g/dL (6.7-8.2)
[2020-03-10 00:46] LABS: MUDS CUTOFF CONCENTRATIONS CUTOFF CONC BELOW:
[2020-03-10 00:48] LABS: BILIRUBIN,URINE NEGATIVE (NEGATIVE); GLUCOSE, URINE (UA) NEGATIVE (NEGATIVE); KETONES,URINE (UA) TRACE mg/dL (NEGATIVE); LEUKOCYTE ESTERASE, URINE SMALL (NEGATIVE); NITRITE,URINE NEGATIVE (NEGATIVE); OCCULT BLOOD,URINE SMALL (NEGATIVE); PROTEIN,URINE NEGATIVE (NEGATIVE); UROBILINOGEN,URINE 0.2 (NORMAL) E.U./dL (NORMAL)
[2020-03-10 00:50] LABS: CLARITY,URINE CLEAR (CLEAR); HCG UR QUAL NEGATIVE
[2020-03-10 00:55] LABS: BACTERIA,URINE Rare /HPF (None Seen); MUCUS,URINE Few Strands; SQUAMOUS EPITHELIAL CELL,UR MOD Squamous (<= Few)
[2020-03-10 00:58] LABS: AMPHETAMINE SCREEN,URINE NEGATIVE (NEGATIVE); BENZODIAZEPINES SCREEN, URINE NEGATIVE (NEGATIVE); COCAINE SCREEN URINE NEGATIVE (NEGATIVE); METHADONE SCREEN, URINE NEGATIVE (NEGATIVE); METHAMPHETAMINES SCREEN, URINE NEGATIVE (NEGATIVE); OPIATE SCREEN, URINE NEGATIVE (NEGATIVE); OXYCODONE SCREEN, URINE NEGATIVE (NEGATIVE); PROPOXYPHENE SCREEN, URINE NEGATIVE (NEGATIVE); TRICYCLIC ANTIDEPRESSANT,URINE NEGATIVE (NEGATIVE)
[2020-03-10] MEDS ORDERED: POTASSIUM CHLOR 10 MEQ/100 ML 10 MEQ/100 ML BAG IV ONE (01:24)
[2020-03-10 04:28] VITALS: BP 99/67
== END 2020-03-10 04:55 | disposition home or self-care (01) ==
LOC: EDUNIT# → ED 23:48
DX: E86.0 Dehydration (principal); K29.20 Alcoholic gastritis without bleeding; F10.229 Alcohol dependence with intoxication, unspecified; F10.239 Alcohol dependence with withdrawal, unspecified; F41.9 Anxiety disorder, unspecified; R00.0 Tachycardia, unspecified; F17.200 Nicotine dependence, unspecified, uncomplicated
CPT/HCPCS: 36415; 80320; 80329; 81001; 81025; 82009; 83690; 83735; 93005; 96361; 96365; 96375; 99284; 99285; J2060; 80053; 80306; 80307; 81003; 84443; 85025; 87086

== ENCOUNTER 2020-04-22 08:40 | Emergency (ER) | payer OTHER ==
[2020-04-22] MEDS ORDERED: SODIUM CHLORIDE 0.9% 1,000 ML IV STA ×2 (09:16)
--- NOTE | 2020-04-22 09:19 | ED Physician Documentation ---
History of Present Illness - Stated complaint Stated Complaint: HEART RACING - Chief complaint Chief Complaint: Cardiac - History obtained from History obtained from: Patient - History of Present Illness Timing: Today Pain level max: 0 Pain level now: 0 - Additonal information Additional information: 39-year-old female presents to the emergency department complaining that she feels anxious and like her heart is racing. This tends to happen when she is drinking alcohol more than usual. She states she has been drinking heavily the last several days. She would like to talk about going to rehab with social work. She denies suicidal or homicidal ideation. Nothing makes this better or worse. Took Ativan without relief. She has been seen in the emergency department several times for similar complaints, usually follows when she has been drinking heavily. 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 : None HEENT: None Psych: Anxiety Musculoskeletal: None Derm: None - Past Surgical History Past Surgical History: No - Present Medications Home Medications: Ambulatory Orders Medication Instructions Recorded Confirmed Ferrous Sulfate 325 mg PO DAILY #90 tablet 06/14/19 Famotidine 20 mg PO DAILY #20 tablet 03/10/20 LORazepam [Ativan] 1 mg PO Q6H PRN #25 tablet 03/10/20 Ondansetron Odt [Zofran] 4 mg TL Q6H PRN #20 tablet 03/10/20 - Allergies Allergies/Adverse Reactions: Allergies Allergy/AdvReac Type Severity Reaction Status Date / Time No Known Drug Allergies Allergy Verified 04/22/20 09:00 - Social History Does the pt smoke?: Yes Smoking Status: Current every day smoker Does the pt drink ETOH?: Yes Does the pt have substance abuse?: No - Immunizations Immunizations are current?: No Immunizations: TDAP >10years/unknown - POLST Patient has POLST: No PD ED PE NORMAL - Vitals Vital signs reviewed: Yes - General General: Alert and oriented X 3, No acute distress, Well developed/nourished - HEENT HEENT: PERRL, Moist mucous membranes - Neck Neck: Supple, no meningeal sign - Cardiac Cardiac: RRR, Strong equal pulses - Respiratory Respiratory: No respiratory distress, Clear bilaterally - Abdomen Abdomen: Soft, Non tender, Non distended - Derm Derm: Warm and dry - Extremities Extremities: No edema, No calf tenderness / cord - Neuro Neuro: Alert and oriented X 3 - Psych Psych: Normal mood, Normal affect Results - Vitals Vitals: Vital Signs - 24 hr 04/22/20 04/22/20 04/22/20 08:57 10:00 11:00 Temperature 36.8 C Heart Rate 95 105 H 111 H Respiratory 16 15 18 Rate Blood Pressure 142/84 H 133/89 H 130/89 H O2 Saturation 98 95 97 04/22/20 11:37 Temperature Heart Rate 113 H Respiratory 14 Rate Blood Pressure 129/85 H O2 Saturation 99 Oxygen O2 Source Room air - EKG (time done) 0853 Rate: Rate (enter#) (104) Rhythm: Sinus tachycardia [place]: Normal Intervals: Normal SD QRS: Normal Ischemia: Normal ST segments - Labs Labs: Laboratory Tests 04/22/20 04/22/20 04/22/20 09:28 09:28 09:28 WBC 9.4 RBC 4.59 Hgb 13.4 Hct 41.3 MCV 90.0 MCH 29.2 MCHC 32.4 RDW 15.0 Plt Count 508 H MPV 8.3 Neut # (Auto) 6.5 Lymph # (Auto) 2.2 [place] # (Auto) 0.4 Eos # (Auto) 0.2 Baso # (Auto) 0.2 H Absolute Nucleated RBC 0.00 Nucleated RBC % 0.0 Sodium 139 Potassium 4.0 Chloride 100 L Carbon Dioxide 23 Anion Gap 16.0 H BUN 10 Creatinine 0.7 Estimated GFR (MDRD) 94 Glucose 96 Calcium 8.9 Phosphorus 2.7 Magnesium 2.0 Total Bilirubin 0.4 AST 26 ALT 36 Alkaline Phosphatase 66 Total Protein 8.5 H Albumin 4.2 Globulin 4.3 H Albumin/Globulin Ratio 1.0 Lipase 42 TSH 0.54 Urine Color Urine Clarity Urine pH Ur Specific [place] Urine Protein Urine Glucose (UA) Urine Ketones Urine Occult Blood Urine Nitrite Urine Bilirubin Urine Urobilinogen Ur Leukocyte Esterase Ur Microscopic Review Urine Culture Comments Urine HCG, Qual Salicylates < 6.0 Urine Opiates Screen Ur Oxycodone Screen Urine Methadone Screen Ur Propoxyphene Screen Acetaminophen < 10 L Ur Barbiturates Screen Ur Tricyclics Screen Ur Phencyclidine Scrn Ur Amphetamine Screen U Methamphetamines Scrn U Benzodiazepines Scrn Urine Cocaine Screen U Cannabinoids Screen Ethyl Alcohol 91.6 04/22/20 09:43 WBC RBC Hgb Hct MCV MCH MCHC RDW Plt Count MPV Neut # (Auto) Lymph # (Auto) [place] # (Auto) Eos # (Auto) Baso # (Auto) Absolute Nucleated RBC Nucleated RBC % Sodium Potassium Chloride Carbon Dioxide Anion Gap BUN Creatinine Estimated GFR (MDRD) Glucose Calcium Phosphorus Magnesium Total Bilirubin AST ALT Alkaline Phosphatase Total Protein Albumin Globulin Albumin/Globulin Ratio Lipase TSH Urine Color YELLOW Urine Clarity CLEAR Urine pH 7.0 Ur Specific [place] 1.015 Urine Protein NEGATIVE Urine Glucose (UA) NEGATIVE Urine Ketones NEGATIVE Urine Occult Blood NEGATIVE Urine Nitrite NEGATIVE Urine Bilirubin NEGATIVE Urine Urobilinogen 0.2 (NORMAL) Ur Leukocyte Esterase NEGATIVE Ur Microscopic Review NOT INDICATED Urine Culture Comments NOT INDICATED Urine HCG, Qual NEGATIVE Salicylates Urine Opiates Screen NEGATIVE Ur Oxycodone Screen POSITIVE H Urine Methadone Screen NEGATIVE Ur Propoxyphene Screen NEGATIVE Acetaminophen Ur Barbiturates Screen NEGATIVE Ur Tricyclics Screen NEGATIVE Ur Phencyclidine Scrn NEGATIVE Ur Amphetamine Screen NEGATIVE U Methamphetamines Scrn NEGATIVE U Benzodiazepines Scrn NEGATIVE Urine Cocaine Screen NEGATIVE U Cannabinoids Screen NEGATIVE Ethyl Alcohol PD MEDICAL DECISION MAKING - ED course Complexity details: reviewed results, re-evaluated patient, considered differential, d/w patient ED course: Patient is an alcoholic. She was given IV fluids and feels better. She appears to be going into alcohol withdrawal. She was consulted on by social work who gave the patient resources for rehab and detox. Patient does not want to go anywhere today. Patient is not having any hallucinations or seizures. Recommend that she follow-up closely with the resources given to help her stop drinking. Patient counseled regarding signs and symptoms for which I believe and urgent re-evaluation would be necessary. Patient with good understanding of and agreement to plan and is comfortable going home at this time This document was made in part using voice recognition software. While efforts are made to proofread this document, sound alike and grammatical errors may occur. Tachycardia is chronic. Departure - Departure Disposition: 01 Home, Self Care Clinical Impression: Tachycardia, Dehydration, Alcoholism, Anxiety Condition: Good Instructions: ED Dehydration, ED Alcohol Abuse Follow-Up: Reanna Baker ARNP [Primary Care Provider] - Within 3 Days Comments: Your testing does not show any acute abnormalities today. Follow-up with your doctor for further care. You should consider reaching out to services provided by social work today Discharge Date/Time: 04/22/20 12:08
[2020-04-22 09:53] LABS: MUDS CUTOFF CONCENTRATIONS CUTOFF CONC BELOW:
[2020-04-22 09:53] LABS: BASOPHILS # (AUTO) 0.2 10^3/uL (0.0-0.1); BASOPHILS % (AUTO) 1.6 %; EOSINOPHILS # (AUTO) 0.2 10^3/uL (0.0-0.7); EOSINOPHILS % (AUTO) 2.1 %; HGB - HEMOGLOBIN 13.4 g/dL (12.0-16.0); LYMPHOCYTES # (AUTO) 2.2 10^3/uL (1.5-3.5); MEAN CORPUSCULAR HEMOGLOBIN 29.2 pg (27.0-31.0); MEAN CORPUSCULAR HGB CONC 32.4 g/dL (32.0-36.0); MEAN PLATELET VOLUME 8.3 fL (7.9-10.8); MONOCYTES # (AUTO) 0.4 10^3/uL (0.0-1.0); MONOCYTES % (AUTO) 4.3 %; NEUTROPHILS # (AUTO) 6.5 10^3/uL (1.5-6.6); NEUTROPHILS % (AUTO) 68.6 %; PLT - PLATELET COUNT 508 10^3/uL (130-450); RED BLOOD COUNT 4.59 10^6/uL (4.20-5.40); WHITE BLOOD COUNT 9.4 x10^3/uL (4.8-10.8)
[2020-04-22 10:02] LABS: BILIRUBIN,URINE NEGATIVE (NEGATIVE); GLUCOSE, URINE (UA) NEGATIVE (NEGATIVE); KETONES,URINE (UA) NEGATIVE (NEGATIVE); LEUKOCYTE ESTERASE, URINE NEGATIVE (NEGATIVE); NITRITE,URINE NEGATIVE (NEGATIVE); OCCULT BLOOD,URINE NEGATIVE (NEGATIVE); PROTEIN,URINE NEGATIVE (NEGATIVE); UROBILINOGEN,URINE 0.2 (NORMAL) E.U./dL (NORMAL)
[2020-04-22 10:04] LABS: CLARITY,URINE CLEAR (CLEAR); HCG UR QUAL NEGATIVE
[2020-04-22 10:10] LABS: ACETAMINOPHEN < 10 ug/mL (10-30); ALBUMIN 4.2 g/dL (3.2-5.5); ALKALINE PHOSPHATASE 66 IU/L (42-121); ALT ALANINE AMINOTRANSFERASE 36 IU/L (10-60); AST ASPARTATE AMINOTRANSFERASE 26 IU/L (10-42); BILIRUBIN,TOTAL 0.4 mg/dL (0.2-1.0); BUN - BLOOD UREA NITROGEN 10 mg/dL (6-20); CALCIUM 8.9 mg/dL (8.5-10.3); CARBON DIOXIDE - CO2 23 mmol/L (21-32); CHLORIDE 100 mmol/L (101-111); CREATININE 0.7 mg/dL (0.4-1.0); GLUCOSE 96 mg/dL (70-100); LIPASE 42 U/L (22-51); PHOSPHORUS 2.7 mg/dL (2.5-4.6); SALICYLATE < 6.0 mg/dL; SODIUM 139 mmol/L (135-145); TOTAL PROTEIN 8.5 g/dL (6.7-8.2)
[2020-04-22 11:09] LABS: OXYCODONE SCREEN, URINE POSITIVE (NEGATIVE)
[2020-04-22 11:10] LABS: AMPHETAMINE SCREEN,URINE NEGATIVE (NEGATIVE); BENZODIAZEPINES SCREEN, URINE NEGATIVE (NEGATIVE); COCAINE SCREEN URINE NEGATIVE (NEGATIVE); METHADONE SCREEN, URINE NEGATIVE (NEGATIVE); METHAMPHETAMINES SCREEN, URINE NEGATIVE (NEGATIVE); OPIATE SCREEN, URINE NEGATIVE (NEGATIVE); PROPOXYPHENE SCREEN, URINE NEGATIVE (NEGATIVE); TRICYCLIC ANTIDEPRESSANT,URINE NEGATIVE (NEGATIVE)
[2020-04-22 11:41] VITALS: BP 129/85
== END 2020-04-22 12:08 | disposition home or self-care (01) ==
LOC: ED 08:40
DX: R00.0 Tachycardia, unspecified (principal); E86.0 Dehydration; F10.20 Alcohol dependence, uncomplicated; F41.9 Anxiety disorder, unspecified; F17.200 Nicotine dependence, unspecified, uncomplicated
CPT/HCPCS: 36415; 80053; 80306; 80307; 80320; 80329; 81001; 81003; 81025; 83690; 83735; 84100; 84443; 85025; 87086; 93005; 96360; 99284

== ENCOUNTER 2020-05-20 19:36 | Emergency (ER) | payer OTHER ==
--- NOTE | 2020-05-20 19:48 | ED Physician Documentation ---
History of Present Illness - Stated complaint Stated Complaint: HEART RACING - Chief complaint Chief Complaint: Cardiac - History obtained from History obtained from: Patient - Additonal information Additional information: the patient is a 39 y/o f who admits to drinking alcohol heavily for the last 4 days. Patient reports that she would like to stop drinking alcohol and would like Assistance with alcohol withdrawal. Denies any fevers or homicidal or suicidal thoughts or auditory or visual hallucinations. Review of Systems Constitutional: reports: Reviewed and negative Eyes: reports: Reviewed and negative Ears: reports: Reviewed and negative Nose: reports: Reviewed and negative Throat: reports: Reviewed and negative Cardiac: reports: Palpitations Respiratory: reports: Reviewed and negative GI: reports: Reviewed and negative : reports: Reviewed and negative Skin: reports: Reviewed and negative Musculoskeletal: reports: Reviewed and negative Neurologic: reports: Reviewed and negative Psychiatric: reports: Anxiety Endocrine: reports: Reviewed and negative Immunocompromised: reports: Reviewed and negative PD PAST MEDICAL HISTORY - Past Medical History Cardiovascular: None Respiratory: None Neuro: Headaches Endocrine/Autoimmune: None GI: None 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 : None HEENT: None Psych: Anxiety Musculoskeletal: None Derm: None - Past Surgical History Past Surgical History: No - Present Medications Home Medications: Ambulatory Orders Medication Instructions Recorded Confirmed Ferrous Sulfate 325 mg PO DAILY #90 tablet 06/14/19 Famotidine 20 mg PO DAILY #20 tablet 03/10/20 LORazepam [Ativan] 1 mg PO Q6H PRN #25 tablet 03/10/20 Ondansetron Odt [Zofran] 4 mg TL Q6H PRN #20 tablet 03/10/20 chlordiazePOXIDE [Librium] 25 mg PO Q6H PRN #8 capsule 05/21/20 - Allergies Allergies/Adverse Reactions: Allergies Allergy/AdvReac Type Severity Reaction Status Date / Time No Known Drug Allergies Allergy Verified 05/20/20 19:47 - Social History Does the pt smoke?: Yes Smoking Status: Current every day smoker Does the pt drink ETOH?: Yes Does the pt have substance abuse?: No - Immunizations Immunizations are current?: No Immunizations: TDAP >10years/unknown - POLST Patient has POLST: No PD ED PE NORMAL - Vitals Vital signs reviewed: Yes - General General: Alert and oriented X 3, No acute distress, Well developed/nourished - HEENT HEENT: Atraumatic, PERRL, EOMI, Ears normal, Moist mucous membranes, Pharynx benign, Dentition benign - Neck Neck: Supple, no meningeal sign, No bony TTP, No adenopathy, Thyroid normal, No JVD, No bruit - Cardiac Cardiac: No murmur, No gallop, No rub, Strong equal pulses, Other (tachycardic, regular rhythm) - Respiratory Respiratory: No respiratory distress, Clear bilaterally - Abdomen Abdomen: Normal bowel sounds, Soft, Non tender, Non distended, No organomegaly - Derm Derm: Warm and dry - Extremities Extremities: No deformity - Neuro Neuro: Alert and oriented X 3, safe expert 2-12 intact, No motor deficit, No sensory deficit, Normal speech - Psych Psych: Other (Anxious) Results - Vitals Vitals: Vital Signs - 24 hr 05/20/20 05/20/20 05/21/20 19:44 19:46 00:29 Temperature 37.2 C Heart Rate 122 H 104 H 104 H Respiratory 17 14 14 Rate Blood Pressure 154/108 H 110/65 110/65 O2 Saturation 99 99 99 05/21/20 02:09 Temperature Heart Rate 121 H Respiratory 19 Rate Blood Pressure 124/71 O2 Saturation 98 Oxygen O2 Source Room air - EKG (time done) 19:43 Rate: Other (sinus tachycardia, no stemi. ) - Labs Labs: Laboratory Tests 05/20/20 05/20/20 05/20/20 20:09 20:09 20:09 WBC 7.2 RBC 4.69 Hgb 13.8 Hct 41.3 MCV 88.1 MCH 29.4 MCHC 33.4 RDW 15.3 H Plt Count 441 MPV 8.7 Neut # (Auto) 3.3 Lymph # (Auto) 3.2 [place] # (Auto) 0.5 Eos # (Auto) 0.1 Baso # (Auto) 0.2 H Absolute Nucleated RBC 0.00 Nucleated RBC % 0.0 Sodium 141 Potassium 3.9 Chloride 104 Carbon Dioxide 19 L Anion Gap 18.0 H BUN 19 Creatinine 0.9 Estimated GFR (MDRD) 70 L Glucose 90 Calcium 8.9 Magnesium 1.9 Total Bilirubin 0.6 AST 48 H ALT 60 Alkaline Phosphatase 65 Total Protein 8.3 H Albumin 3.9 Globulin 4.4 H Albumin/Globulin Ratio 0.9 L Lipase 44 TSH 1.43 Salicylates < 6.0 Acetaminophen < 10 L Ethyl Alcohol 285.5 PD MEDICAL DECISION MAKING - ED course Complexity details: reviewed old records, reviewed results, re-evaluated patient, considered differential, d/w patient, other ED course: 39-year-old female with acute alcohol intoxication with alcohol abuse and dependence and withdrawal. She was monitored here for 7 hours. She is being given a banana bag as well asProvided a prescription for Librium for the next 48 hours lytics and also she should follow with her primary care provider today and consider going to detox. Departure - Departure Disposition: 01 Home, Self Care Clinical Impression: Alcohol abuse Alcohol intoxication Qualifiers: Complication of substance-induced condition: with unspecified complication Qualified Code(s): F10.929 - Alcohol use, unspecified with intoxication, unspecified Alcohol dependence Qualifiers: Substance use status: unspecified alcohol-induced disorder Qualified Code(s): F10.29 - Alcohol dependence with unspecified alcohol-induced disorder Alcohol withdrawal Qualifiers: Complication of substance-induced condition: with unspecified complication Qualified Code(s): F10.239 - Alcohol dependence with withdrawal, unspecified Condition: Stable Instructions: ED Withdrawal Alcohol Follow-Up: Reanna Baker ARNP [Primary Care Provider] - 05/21/20 Prescriptions: chlordiazePOXIDE [Librium] 25 mg PO Q6H PRN #8 capsule PRN Reason: Anxiety Comments: follow up with your primary care provider today. take librium as needed for alcohol withdrawal. consider going to an alcohol detox facility.
[2020-05-20] MEDS ORDERED: SODIUM CHLORIDE 0.9% 1,000 ML IV STA (19:57)
[2020-05-20] MEDS ORDERED: FOLIC ACID INJ 1 MG, THIAMINE INJ 100 MG, MAGNESIUM SULFATE 2 GM, MULTIVITAMIN 10 ML in... IV STA ×5 (19:58)
[2020-05-20 20:13] LABS: BASOPHILS # (AUTO) 0.2 10^3/uL (0.0-0.1); BASOPHILS % (AUTO) 2.1 %; EOSINOPHILS # (AUTO) 0.1 10^3/uL (0.0-0.7); EOSINOPHILS % (AUTO) 0.8 %; HGB - HEMOGLOBIN 13.8 g/dL (12.0-16.0); LYMPHOCYTES # (AUTO) 3.2 10^3/uL (1.5-3.5); LYMPHOCYTES % (AUTO) 44.7 %; MEAN CORPUSCULAR HEMOGLOBIN 29.4 pg (27.0-31.0); MEAN CORPUSCULAR HGB CONC 33.4 g/dL (32.0-36.0); MEAN CORPUSCULAR VOLUME 88.1 fL (81.0-99.0); MEAN PLATELET VOLUME 8.7 fL (7.9-10.8); MONOCYTES # (AUTO) 0.5 10^3/uL (0.0-1.0); MONOCYTES % (AUTO) 6.8 %; NEUTROPHILS # (AUTO) 3.3 10^3/uL (1.5-6.6); NEUTROPHILS % (AUTO) 45.5 %; PLT - PLATELET COUNT 441 10^3/uL (130-450); RED BLOOD COUNT 4.69 10^6/uL (4.20-5.40); RED CELL DISTRIBUTION WIDTH 15.3 % (12.0-15.0); WHITE BLOOD COUNT 7.2 x10^3/uL (4.8-10.8)
[2020-05-20] MEDS ORDERED: THIAMINE 100 MG/1 ML 2 ML MDV ONE (20:23)
[2020-05-20] MEDS ORDERED: MAGNESIUM SULFATE 1 GM/2 ML VIAL ONE (20:23)
[2020-05-20] MEDS ORDERED: FOLIC ACID 5 MG/1 ML 10ML MDV ONE (20:23)
[2020-05-20 20:29] LABS: ACETAMINOPHEN < 10 ug/mL (10-30); ALBUMIN 3.9 g/dL (3.2-5.5); ALBUMIN/GLOBULIN RATIO 0.9 (1.0-2.2); ALKALINE PHOSPHATASE 65 IU/L (42-121); ALT ALANINE AMINOTRANSFERASE 60 IU/L (10-60); AST ASPARTATE AMINOTRANSFERASE 48 IU/L (10-42); BILIRUBIN,TOTAL 0.6 mg/dL (0.2-1.0); BUN - BLOOD UREA NITROGEN 19 mg/dL (6-20); CALCIUM 8.9 mg/dL (8.5-10.3); CARBON DIOXIDE - CO2 19 mmol/L (21-32); CHLORIDE 104 mmol/L (101-111); CREATININE 0.9 mg/dL (0.4-1.0); GLUCOSE 90 mg/dL (70-100); LIPASE 44 U/L (22-51); MAGNESIUM 1.9 mg/dL (1.7-2.8); SALICYLATE < 6.0 mg/dL; SODIUM 141 mmol/L (135-145); TOTAL PROTEIN 8.3 g/dL (6.7-8.2)
[2020-05-21] MEDS ORDERED: CALCIUM CARBONATE CHEW 500 MG TABLET PO STA (00:02)
[2020-05-21] MEDS ORDERED: LORazepam 2 MG/ML VIAL IVP STA ×2 (00:51→01:11)
[2020-05-21 02:11] VITALS: BP 124/71
[2020-05-21] MEDS ORDERED: chlordiazePOXIDE 25 MG CAPSULE PO STA (02:14)
== END 2020-05-21 02:34 | disposition home or self-care (01) ==
LOC: ED 19:36
DX: F10.229 Alcohol dependence with intoxication, unspecified (principal); F10.239 Alcohol dependence with withdrawal, unspecified; R00.0 Tachycardia, unspecified; F17.200 Nicotine dependence, unspecified, uncomplicated
CPT/HCPCS: 36415; 80320; 80329; 83690; 83735; 93005; 96365; 96366; 96375; 99284; A9270; J2060; J3411; 80053; 80307; 84443; 85025

== ENCOUNTER 2020-06-30 21:49 | Emergency (ER) | payer OTHER ==
--- NOTE | 2020-06-30 21:56 | ED Physician Documentation ---
History of Present Illness - Stated complaint Stated Complaint: IRREGULAR HEART RATE - History obtained from History obtained from: Patient - History of Present Illness Timing: Today Pain level now: 2 (epigastric) Improved by: nothing Worsened by: palpitations/rapid heart rate exacerbates the anxiety which then exacerbates her palpitations/rapid heart rate - Additonal information Additional information: "felt pretty tired at work today", "didn't feel too good", went home and had increasing sensation of generalized anxiety and malaise, followed by sensation of fast heart rate. The rapid palpitations would then exacerbate her anxiety and she felt she was stuck in this cycle. She says she has "a lot of stress and anxiety" recently related to her sister being in a hospital in [place] and critically ill. Patient has had several previous [facility] ED visits over past year with similar presentation; she says that many of these were possibly related to heavy alcohol intake but that she has not consumed any alcohol for many weeks. She also c/o mild epigastric discomfort when she bends forward Review of Systems Constitutional: reports: Reviewed and negative Cardiac: reports: Palpitations. denies: Chest pain / pressure, Pedal edema Respiratory: denies: Dyspnea, Cough GI: reports: Abdominal Pain. denies: Abdominal Swelling, Nausea, Vomiting, Constipation, Diarrhea : denies: Now EGA Neurologic: denies: Headache Psychiatric: reports: Anxiety. 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 : None HEENT: None Psych: Anxiety Musculoskeletal: None Derm: None - Past Surgical History Past Surgical History: No - Present Medications Home Medications: Ambulatory Orders Medication Instructions Recorded Confirmed Esomeprazole Magnesium [Nexium] 1 tab PO DAILY 06/30/20 06/30/20 LORazepam [Ativan] 1 mg PO BID PRN #14 tablet 07/01/20 - Allergies Allergies/Adverse Reactions: Allergies Allergy/AdvReac Type Severity Reaction Status Date / Time No Known Drug Allergies Allergy Verified 06/30/20 22:03 - Social History Does the pt smoke?: Yes Smoking Status: Current every day smoker Does the pt drink ETOH?: Yes Does the pt have substance abuse?: No - Immunizations Immunizations are current?: No Immunizations: TDAP >10years/unknown - POLST Patient has POLST: No PD ED PE NORMAL - Vitals Vital signs reviewed: Yes - General General: Alert and oriented X 3, No acute distress, Well developed/nourished - HEENT HEENT: Moist mucous membranes - Neck Neck: Supple, no meningeal sign - Cardiac Cardiac: No murmur - Respiratory Respiratory: No respiratory distress, Clear bilaterally - Abdomen Abdomen: Soft, Non tender, Non distended - Derm Derm: Normal color, Warm and dry - Extremities Extremities: No edema - Neuro Neuro: Alert and oriented X 3 PD ED PE EXPANDED - Cardiac Cardiac: Tachy, Regular Rhythm Results - Vitals Vitals: Vital Signs - 24 hr 06/30/20 06/30/20 07/01/20 21:50 23:08 00:28 Temperature 36.7 C Heart Rate 119 H 90 83 Respiratory 22 16 16 Rate Blood Pressure 155/102 H 130/82 H O2 Saturation 100 99 99 07/01/20 01:54 Temperature Heart Rate 76 Respiratory 16 Rate Blood Pressure 100/72 O2 Saturation 97 Oxygen O2 Source Room air - EKG (time done) No standard instances Rate: Rate (enter#) (93) Rhythm: NSR [place]: RAD (borderline) Intervals: Other (borderline short [place] interval) Ischemia: Normal ST segments - Labs Labs: Laboratory Tests 06/30/20 06/30/20 06/30/20 22:50 22:50 22:50 WBC 9.0 RBC 4.19 L Hgb 12.1 Hct 37.0 MCV 88.3 MCH 28.9 MCHC 32.7 RDW 13.9 Plt Count 406 MPV 8.5 Neut # (Auto) 5.6 Lymph # (Auto) 2.4 [place] # (Auto) 0.6 Eos # (Auto) 0.3 Baso # (Auto) 0.1 Absolute Nucleated RBC 0.00 Nucleated RBC % 0.0 Sodium 137 Potassium 3.7 Chloride 104 Carbon Dioxide 23 Anion Gap 10.0 BUN 15 Creatinine 0.8 Estimated GFR (MDRD) 81 L Glucose 138 H Calcium 9.1 Total Bilirubin 0.4 AST 19 ALT 25 Alkaline Phosphatase 48 Total Protein 7.6 Albumin 3.7 Globulin 3.9 Albumin/Globulin Ratio 0.9 L Lipase 52 H TSH 1.23 - Rads (name of study) chest xray Radiology: Prelim report reviewed, See rad report PD MEDICAL DECISION MAKING - ED course Complexity details: reviewed old records, reviewed results, re-evaluated patient, considered differential, d/w patient ED course: patient noted to have ST early in stay, which would occasionally spontaneously improve to upper 90s but even during simple conversation with me, her pulse would speed up over several seconds to 110s-130 (did not suddenly change rate from beat to beat). unremarkable w/u and her tachycardia resolved after IV fluids and IV lorazepam. Results d/w patient; she attributes her symptoms to her anxiety and stress. I encouraged her to f/u with PMD, as further testing might be warranted, and to return to ED if worse. Departure - Departure Disposition: 01 Home, Self Care Clinical Impression: Anxiety, Palpitations Condition: Good Instructions: ED Palpitations, ED Panic Attack Follow-Up: Reanna Baker ARNP [Primary Care Provider] - Within 1 week Prescriptions: LORazepam [Ativan] 1 mg PO BID PRN #14 tablet PRN Reason: Anxiety Discharge Date/Time: 07/01/20 02:03
[2020-06-30] MEDS ORDERED: LORazepam 2 MG/ML VIAL IVP STA (22:40)
[2020-06-30] MEDS ORDERED: SODIUM CHLORIDE 0.9% 1,000 ML IV STA (22:40)
[2020-06-30 22:55] LABS: BASOPHILS # (AUTO) 0.1 10^3/uL (0.0-0.1); EOSINOPHILS # (AUTO) 0.3 10^3/uL (0.0-0.7); EOSINOPHILS % (AUTO) 3.8 %; HGB - HEMOGLOBIN 12.1 g/dL (12.0-16.0); LYMPHOCYTES # (AUTO) 2.4 10^3/uL (1.5-3.5); LYMPHOCYTES % (AUTO) 26.2 %; MEAN CORPUSCULAR HEMOGLOBIN 28.9 pg (27.0-31.0); MEAN CORPUSCULAR HGB CONC 32.7 g/dL (32.0-36.0); MEAN CORPUSCULAR VOLUME 88.3 fL (81.0-99.0); MEAN PLATELET VOLUME 8.5 fL (7.9-10.8); MONOCYTES # (AUTO) 0.6 10^3/uL (0.0-1.0); MONOCYTES % (AUTO) 6.8 %; NEUTROPHILS # (AUTO) 5.6 10^3/uL (1.5-6.6); NEUTROPHILS % (AUTO) 61.8 %; PLT - PLATELET COUNT 406 10^3/uL (130-450); RED BLOOD COUNT 4.19 10^6/uL (4.20-5.40); RED CELL DISTRIBUTION WIDTH 13.9 % (12.0-15.0)
[2020-06-30 23:09] LABS: ALBUMIN 3.7 g/dL (3.2-5.5); ALBUMIN/GLOBULIN RATIO 0.9 (1.0-2.2); BILIRUBIN,TOTAL 0.4 mg/dL (0.2-1.0); CALCIUM 9.1 mg/dL (8.5-10.3); CREATININE 0.8 mg/dL (0.4-1.0); TOTAL PROTEIN 7.6 g/dL (6.7-8.2)
[2020-07-01 01:55] VITALS: BP 100/72
--- NOTE | 2020-07-01 07:34 | XRAY Report ---
PROCEDURE: Chest 2 View X-Ray INDICATIONS: palpitations TECHNIQUE: 2 view(s) of the chest. COMPARISON: None. FINDINGS: Surgical changes and devices: None. Lungs and pleura: No pleural effusions or pneumothorax. Lungs are clear. Mediastinum: Mediastinal contours are normal. Heart size is normal. Bones and chest wall: No suspicious bony abnormalities. Soft tissues appear unremarkable. IMPRESSION: No acute cardiopulmonary disease process. Reviewed by: Carolyn Castro MD, PhD on 07/01/2020 7:32 AM [facility] Approved by: Carolyn Castro MD, PhD on 07/01/2020 7:32 AM [facility] Station ID: [id number]
== END 2020-07-01 02:03 | disposition home or self-care (01) ==
LOC: ED 21:49
DX: F41.9 Anxiety disorder, unspecified (principal); R00.0 Tachycardia, unspecified; F17.200 Nicotine dependence, unspecified, uncomplicated
CPT/HCPCS: 36415; 71046; 83690; 93005; 96361; 96374; 99284; J2060; 80053; 84443; 85025